=== PATIENT | male | born 2000 | race American Indian/Alaskan Native ===

== ENCOUNTER 2020-08-05 10:49 | Outpatient (CLI) | payer OTHER ==
--- NOTE | 2020-08-07 11:58 | XRay Report ---
CHEST 2 VIEWS INDICATION / CLINICAL INFORMATION: Chest pain, heart problems. COMPARISON: None available. FINDINGS: SUPPORT DEVICES: None. HEART / MEDIASTINUM: Heart size is normal. There is a metallic device projecting over the heart that may represent a prosthetic valve, possibly tricuspid valve replacement. LUNGS / PLEURA: No significant pulmonary or pleural abnormality. No pneumothorax. ADDITIONAL FINDINGS: No significant additional findings. IMPRESSION: 1. No acute findings. Signer Name: Renny Saini MD Signed: 08/05/2020 2:45 PM Workstation Name: [id number]
== END 2020-08-05 10:50 | disposition home or self-care (01) ==
LOC: XRAY 10:49
PROVIDERS: ATTEND Internal Medicine
DX: R07.9 Chest pain, unspecified (principal); E66.9 Obesity, unspecified; F90.9 Attention-deficit hyperactivity disorder, unspecified type; G47.33 Obstructive sleep apnea (adult) (pediatric); F81.9 Developmental disorder of scholastic skills, unspecified
CPT/HCPCS: 71046